=== PATIENT | female | born 1970 | race Caucasian/White ===

== ENCOUNTER → 2018-07-23 | Outpatient (CLI) | payer OTHER | LOC: FIMAGING 16:02 | PROVIDERS: ATTEND Nurse Practitioner | DX: M43.07 Spondylolysis, lumbosacral region (principal); M46.97 Unspecified inflammatory spondylopathy, lumbosacral region; M48.07 Spinal stenosis, lumbosacral region ==

== ENCOUNTER 2018-08-14 05:32 | Inpatient (IN) | payer OTHER ==
--- NOTE | 2018-08-14 06:01 | PDANEPAE ---
ANE History of Present Illness L5-S1 TLIF ANE Past Medical History - Cardiovascular History Hx Hypertension: No Hx Arrhythmias: No Hx Chest Pain: No Hx Coronary Artery / Peripheral Vascular Disease: No Hx CHF / Valvular Disease: No Hx Palpitations: No - Pulmonary History Hx COPD: No Hx Asthma/Reactive Airway Disease: No Hx Recent Upper Respiratory Infection: No Hx Oxygen in Use at Home: No Hx Sleep Apnea: No Sleep Apnea Screening Result - Last Documented: Negative - Neurologic History Hx Cerebrovascular Accident: No Hx Seizures: No Hx Dementia: No Neurologic History Comment: migraines - Endocrine History Hx Diabetes: No Hypothyroid: No Hyperthyroid: No Obesity: mild - Renal History Hx Renal Disorders: Yes Renal History Comment: weaker bladder after having children - Liver History Hx Hepatic Disorders: No - Neurological & Psychiatric Hx Hx Neurological and Psychiatric Disorders: No - Cancer History Hx Cancer: No - Congenital Disorder History Hx Congenital Disorders: No - GI History GERD: no Hx Gastrointestinal Disorders: Yes Gastrointestinal History Comment: constipation issues at times - Other Health History Other Health History: wears glasses for distance - Chronic Pain History Chronic Pain: Yes (sciatic pain and right leg) - Surgical History Prior Surgeries: n/a ANE Review of Systems Review of Systems: - Exercise capacity METS (RN): 4 METS ANE Patient History - Allergies Allergies/Adverse Reactions: No Known Allergies Allergy (Verified 08/06/18 15:41) - Home Medications Home Medications: Ibuprofen [Motrin (*)] 200 mg PO Q4-6PRN PRN 07/30/18 [Last Taken 1 Month Ago ~ 07/15/18] Naratriptan HCl [Amerge] 2.5 mg PO DAILY PRN 07/30/18 [Last Taken 08/10/18] - Anes Hx Hx Anesthesia Complications (with details): No prior anesthetics. - Smoking Hx Smoking Status: Never smoked Marijuana use: No - Alcohol Use Alcohol Use: Rarely - Family Anes Hx Family Anes Hx: none Family Hx Anesthesia Complications: none ANE Labs/Vital Signs - Vital Signs Blood Pressure: 121/62 Heart Rate: 78 O2 Sat (%): 100 Height: 165.1 cm Weight: 77.111 kg ANE Physical Exam - Airway Neck exam: FROM Mallampati Score: Class 2 Mouth exam: normal dental/mouth exam - Pulmonary Pulmonary: clear to auscultation - Cardiovascular Cardiovascular: regular rate and rhythym - ASA Status ASA Status: II ANE Anesthesia Plan Anesthesia Plan: general endotracheal anesthesia
[2018-08-14] MEDS ORDERED: ceFAZolin 2 GM/DEXTROSE 100 ML IV ONE (06:05)
[2018-08-14] MEDS ORDERED: GABAPENTIN 300 MG CAP PO ONE (06:05)
[2018-08-14] MEDS ORDERED: ACETAMINOPHEN 500 MG TAB PO ONE (06:05)
[2018-08-14] MEDS ORDERED: LR 1,000 ML IV ONE (06:06)
--- NOTE | 2018-08-14 06:40 | PDHPUP ---
History & Physical Update H&P update statement: This history and physical update is based on an assessment of the patient which was completed after admission or registration (within 24 hours), but prior to the surgery/procedure. H&P update: H&P reviewed & patient examined, no change in patient's condition since H&P completed
[2018-08-14] MEDS ORDERED: Naratriptan Hcl [Amerge] 2.5 MG PO PRN (06:47)
[2018-08-14] MEDS ORDERED: THROMBIN (BOVINE) 5,000 UNIT VIAL TP ONE (06:48)
[2018-08-14] MEDS ORDERED: CHLORHEXIDINE GLUC HIBICLENS 118 ML BTL TP ONE (06:48)
[2018-08-14] MEDS ORDERED: BUPIVACAINE/EPI 0.25% 30 ML SDV ONE (06:48)
[2018-08-14] MEDS ORDERED: BACITRACIN 50,000 UNITS/10 ML SYR IRR ONE (06:49)
[2018-08-14] MEDS ORDERED: SCOPOLAMINE HYDROBROMIDE 1 MG/3 DAYS PATCH TD ONE (06:53)
[2018-08-14] MEDS ORDERED: MIDAZOLAM 2 MG/2 ML VIAL IVP ONE (06:53)
[2018-08-14] MEDS ORDERED: fentaNYL 250 MCG/5 ML INJ ONE (06:59)
[2018-08-14] MEDS ORDERED: KETAMINE 200 MG/20 ML VIAL ONE (07:00)
[2018-08-14] MEDS ORDERED: PROPOFOL/EMULSION 500 MG/50 ML BOTTLE IV ONE ×2 (07:00→08:23)
[2018-08-14] MEDS ORDERED: ROCURONIUM 50 MG/5 ML VIAL ONE (07:00)
[2018-08-14] MEDS ORDERED: HYDROmorphONE/DILAUDID 2 MG/ML INJ ONE ×2 (08:23→12:26)
[2018-08-14] MEDS ORDERED: PROPOFOL 200 MG/20 ML VIAL ONE (10:35)
[2018-08-14] MEDS ORDERED: ONDANSETRON 4 MG/2 ML VIAL ONE ×2 (10:44)
[2018-08-14] MEDS ORDERED: ONDANSETRON 4 MG/2 ML VIAL IVP PRN ×2 (10:48→11:49)
[2018-08-14] MEDS ORDERED: NALOXONE HCL 0.4 MG/ML INJ IVP PRN (10:48)
[2018-08-14] MEDS ORDERED: oxyCODONE IR 5 MG TAB PO PRN (10:48)
[2018-08-14] MEDS ORDERED: NEOSTIGMINE METHYLSULFATE 5 MG/5 ML SYR ONE (10:56)
[2018-08-14] MEDS ORDERED: GLYCOPYRROLATE 0.2 MG/1 ML VIAL ONE (10:56)
[2018-08-14] MEDS ORDERED: fentaNYL 100 MCG/2 ML INJ ONE (11:43)
[2018-08-14] MEDS: fentaNYL 100 MCG/2 ML INJ IVP PRN ×2 (11:45→11:58)
[2018-08-14] MEDS ORDERED: diphenhydrAMINE 25 MG CAP PO PRN (11:49)
[2018-08-14] MEDS ORDERED: ZOLPIDEM TARTRATE 5 MG TAB PO PRN (11:49)
[2018-08-14] MEDS ORDERED: LACTULOSE 20 GM/30 ML UDCUP PO PRN (11:49)
[2018-08-14] MEDS ORDERED: MAGNESIUM HYDROXIDE 30 ML UDCUP PO PRN (11:49)
[2018-08-14] MEDS ORDERED: HYDROmorphONE/DILAUDID 1 MG/ML INJ IVP PRN (11:49)
[2018-08-14] MEDS ORDERED: ONDANSETRON DISINTEGRATING 4 MG TAB PO PRN (11:49)
[2018-08-14] MEDS ORDERED: POLYETHYLENE GLYCOL 3350 17 GM PKT PO PRN (11:49)
[2018-08-14] MEDS ORDERED: BISACODYL 10 MG SUPP PR PRN (11:49)
--- NOTE | 2018-08-14 11:57 | POSTOPPROG ---
Post Op Note Date of Operation: 08/14/18 Surgeon: Carlos Valentine Strategic Partnership Manager: JARROD Tafoya Anesthesiologist: MD Yoandy Anesthesia: GET(General Endotracheal), Local (Specify) Pre-op Diagnosis: Lumbar stenosis L5/S1 Post-op Diagnosis: Pars Defect/Lumbar stenosis L5/S1 Indication: LE pain, LBP Procedure: TLIF L5/S1 Findings: see op report Inf/Abcess present in the surg proc area at time of surgery?: No Depth: Deep Incisional (Fascial) EBL: 100-500 Total fluids administered: see anesthesia record Complications: none Drains: Chuck Flores
[2018-08-14] MEDS ORDERED: NS 1,000 ML IV SCH (12:00)
--- NOTE | 2018-08-14 12:00 | SOAPPROG ---
SOAP Progress Note Assessment/Plan: Post Op Visit: S: Awake and alert. NAD. Pt with expected lower back pain O: AFVSS/PERRLA/EOMI no droop CN 2-12 grossly intact +lt touch 5/5 BUE/BLE = CDI KELTON in place A/P: 48 yo female that is s/p TLIF L5/S1 -orders in place -call with any questions or concerns -PT/OT -pt understands and agrees -pt seen by Dr Valentine as well Objective: Vital Signs Temp Pulse Resp BP Pulse Ox 36.3 C 78 16 121/62 H 100 08/14/18 11:30 08/14/18 08:11 08/14/18 06:28 08/14/18 08:11 08/14/18 08:11 08/13/18 08/14/18 08/15/18 05:59 05:59 05:59 Intake Total 1210 Output Total 270 Balance 940 ICD10 Worksheet Patient Problems: Problems Problem Status Onset Arthrodesis status Acute Lumbar radicular pain Acute Lumbar stenosis Acute - ICD10 Problem Qualifiers (1) Lumbar stenosis (2) Lumbar radicular pain (3) Arthrodesis status
[2018-08-14] MEDS: HYDROmorphONE/DILAUDID 2 MG/ML INJ IVP PRN ×3 (12:29→13:28)
--- NOTE | 2018-08-14 12:53 | GOP ---
DATE OF OPERATION: 08/14/2018 SURGEON: Rachel Valentine MD NEUROSURGEON: Rachel Valentine MD [facility] DIRECTOR: COLLEEN Smiley. PREOPERATIVE DIAGNOSIS: Lumbar spondylolysis L5-S1, severe right L5 radiculopathy, lumbar spondyloli sthesis L5-S1. POSTOPERATIVE DIAGNOSIS: Lumbar spondylolysis L5-S1, severe right L5 radiculopathy, lumbar spondylol isthesis L5-S1. PROCEDURE PERFORMED: Posterolateral and intervertebral arthrodesis L5-S1 with a Fitzgerald decompression L 5-S1, same incision bone graft harvest, posterior nonsegmental instrumentation across a single inters pace L5-S1, placement of biomechanical intervertebral device L5-S1, spinal stereotaxy, microscope. FINDINGS: ESTIMATED BLOOD LOSS: 150 cc. INDICATIONS: The patient is a middle-age woman who had terrible right L5 radiculopathy and an MRI de monstrated complete obliteration of the right foramen at L5-S1 due to a spondylolisthesis with a lysi s at L5-S1. She had no significant spinal stenosis, but the problem was in the right foramen at L5-S 1 where there was prolapse of the 5-1 disk and the 5 nerve root was crushed against the pedicle of L5 underneath the isthmus coming off the pedicle. I suggested a single-level fusion at that level. Th ere was already some damage in the L4-5 disk, itself, but no significant compressive lesion there in my view. The risk of pseudoarthrosis, continued symptoms, screw and hardware malposition, malfunctio n was discussed. She understood these risks and she wanted to proceed. DESCRIPTION OF PROCEDURE: The patient was taken to the operating room, placed in the supine position . General anesthesia was begun. She was flipped prone onto the Chuck table. Care was taken to pa d all points of contact. Her back was sterilely prepped and draped in usual fashion. A localizing x -ray was taken. I made a midline incision above the L5-S1 interspace. The subcutaneous tissue was dissected using Ross vie cautery down to the fascia and a subperiosteal dissection was made down the L4 lamina, the L5 dominguez migue, and the S1 lamina. We shot localizing x-rays. We then denuded the-L5-S1 facet joint and follow ed the L5 path of the pars interarticularis down to the L5 pedicle and the transverse process of L5. There was a pars defect on each side. We attached the Stealth reference frame to the L4 spinous pro cess and performed an O-arm spin and using frame the Stealth stereotaxy, placed pedicle screws bilate rally at L5 and S1. The L5 pedicles were, indeed, dysplastic and smaller than normal, but we were ab le to get good screws into them. They all stimulated at acceptable levels. We took 35 mm rods down, placed in between the tulips at L5-S1. We then distracted between L5 and S1 and got good reduction o f her spondylolisthesis and locked her in place in this location. We removed all the soft tissue of the bone from the L5 lamina and then harvested the L5 lamina for autologous grafting purposes. We drilled bilateral laminectomies. The lamina was floating because there were bilateral pars defect s, and under the microscope, we completely removed the lamina. We began on the right side where we d ecompressed the right neural foramen, following the L5 root out from adjacent to the L5 pedicle all t he way out into the neural foramina and got a great decompression, thereby removing the abnormal pars interarticularis and the shelf of bone on top of the L5 root. We also decorticated the superior art iculating process of the sacrum to allow arthrodesis. We then turned our attention to the left-hand side where we did likewise. We decompressed the exitin g L5 root and removed the shelf of bone that was sitting on top of the root, and then decorticated th e remaining bone at L5 in the pedicle of L5, as well as the SAP of the sacrum to allow for bony arthr odesis there. We then worked our way medial to the L5 nerve root on the right and just lateral to th e S1 root and removed the L5-S1 disk and the cartilaginous endplates. We roughened the subchondral b one to create arthrodesis at those levels and then took bone autograft and BMP, placed it in the disk space there and then inserted a 7 x 23 mm device, which had been sized to fit. It was inserted with out difficulty and expanded, and we had excellent position of the device. This was all done under fl uoroscopic guidance. We had a large amount of bone autograft in the disk space. We then placed bone autograft and BMP posterolaterally bilaterally, followed by a subfascial drain. All the cap screws had been locked according to company specification. We then closed the incision in multiple layers using Vicryl sutures. A running PDS was placed in the skin, itself. The patient was reversed from anesthesia, extubated, and transferred to the recovery room in stable condition. There were no complications. COMPLICATIONS: None. INSTRUMENTATION USED: [employer] Solera 5.5 mm system with a 7 x 23 mm Elevate cage, and an extra sma ll BMP. /[id number]/MODL
--- NOTE | 2018-08-14 13:14 | POSTANESTH ---
Post Anesthetic Evaluation Cardiovascular Status: Normal, Stable Respiratory Status: Normal, Stable Level of Consciousness/Mental Status: Can Participate in Eval Pain Control: Adequate, Prn Tx Ordered Nausea/Vomiting Control: Adequate, Prn Tx Ordered Complications Possibly Related to Anesthesia: None Noted
[2018-08-14] MEDS ORDERED: ACETAMINOPHEN 500 MG TAB ONE (13:38)
[2018-08-14] MEDS: ACETAMINOPHEN 500 MG TAB PO SCH ×2 (13:39→21:06)
[2018-08-14] MEDS: ceFAZolin 2 GM/DEXTROSE 100 ML IV SCH ×2 (15:07→23:34)
[2018-08-14] MEDS: GABAPENTIN 300 MG CAP PO SCH ×2 (15:07→21:06)
[2018-08-14] MEDS: oxyCODONE IR 5 MG TAB PO PRN (16:10)
[2018-08-14] MEDS ORDERED: PATCH REMOVAL 1 EA PATCH TD ONE (21:00)
[2018-08-14] MEDS: SENNOSIDES/DOCUSATE SODIUM TAB PO SCH (21:06)
[2018-08-14] MEDS: FAMOTIDINE 20 MG TAB PO SCH (21:07)
[2018-08-15] MEDS: oxyCODONE IR 5 MG TAB PO PRN ×5 (00:08→21:00)
[2018-08-15] MEDS: METHOCARBAMOL 750 MG TAB PO PRN ×3 (00:08→19:10)
[2018-08-15] MEDS: GABAPENTIN 300 MG CAP PO SCH ×3 (05:13→21:01)
[2018-08-15 05:19] LABS: PLATELET COUNT 176 10^3/uL (150-400)
[2018-08-15] MEDS: ACETAMINOPHEN 500 MG TAB PO SCH ×3 (06:35→21:03)
--- NOTE | 2018-08-15 09:03 | NEUSURGPN ---
Date of Surgery: 08/14/18 Post Op Day: 1 Assessment/Plan: Assessment: 48 yo female that is s/p TLIF L5/S1 POD #1 Plan: -s/p TLIF L5/S1: pt with expected lower back pain. Legs feel better -will work with PT/OT today -KELTON in place will follow output -post op xrays pending -orders in place -call with any questions or concerns -continue with brace -pt understands and agrees -pt seen by Dr Valentine as well -plan for dc if does well today Subjective: Awake and alert. NAD. Eating/drinking and voiding. No f/c/n/v/d. No andres/neck/ chest/abd or gu complaints. Objective: AFVSS/PERRLA/EOMI no droop CN 2-12 grossly intact +lt touch 5/5 BUE/BLE = CDI KELTON in place Neuro Check Frequency: per routine Urinary Catheter in Place: No Catheter Insertion Date: 08/14/18 - Physician Discussed Patient with Dr.: Serge Patient Seen by : Serge Neurosurgery Physical Exam - Vitals, I&O, Labs I and O 08/14/18 08/15/18 08/16/18 05:59 05:59 05:59 Intake Total 5367 Output Total 3410 Balance 1956 Weight 77.111 kg Intake: Oral (ml) 2260 IV Intake (ml) 1700 IV Infused (ml) 1407 Ns 1,000 ml @ 75 mls/hr 1307 IV CONT BALTAZAR Rx#: [id number] ceFAZolin 2 GM/DEXTROSE 100 100 ml @ 200 mls/hr IV Q8H BALTAZAR Rx#:[id number] Output: Urine (ml) 2520 Catheter 2520 Estimated Blood Loss (ml) 150 Emesis (ml) 400 KELTON Drain Output (ml) 340 #1 Posterior Back Chuck 340 Flores Other: Number of Voids Catheter 1 Number of Emesis 1 Occurrences Vital Signs Temp Pulse Resp BP Pulse Ox 37.3 C 109 H 16 112/52 L 95 08/15/18 04:00 08/15/18 04:00 08/15/18 04:00 08/15/18 04:00 08/15/18 04:00 Laboratory Results 08/15/18 04:56 08/15/18 04:56 ICD10 Worksheet Patient Problems: Problems Problem Status Onset Arthrodesis status Acute Lumbar radicular pain Acute Lumbar stenosis Acute - ICD10 Problem Qualifiers (1) Lumbar stenosis (2) Lumbar radicular pain (3) Arthrodesis status
[2018-08-15] MEDS: SENNOSIDES/DOCUSATE SODIUM TAB PO SCH ×2 (09:31→21:01)
[2018-08-15] MEDS: FAMOTIDINE 20 MG TAB PO SCH ×2 (09:32→21:02)
--- NOTE | 2018-08-15 15:19 | ASMTCMCOM ---
CM Note CM Note Notes: Pt presents with L5-S1 TLIF. PT/OT recommending outpatient. No other CM needs identifed. CM available if needs arise. Plan: Independent Date Signed: 08/15/2018 03:18 PM Electronically Signed By:JODI Pate
[2018-08-16] MEDS: oxyCODONE IR 5 MG TAB PO PRN ×4 (01:41→14:17)
[2018-08-16] MEDS: METHOCARBAMOL 750 MG TAB PO PRN ×2 (01:41→10:10)
[2018-08-16] MEDS: ACETAMINOPHEN 500 MG TAB PO SCH ×2 (05:32→14:16)
[2018-08-16] MEDS: GABAPENTIN 300 MG CAP PO SCH ×2 (05:32→14:17)
--- NOTE | 2018-08-16 06:05 | NEUSURGPN ---
Assessment/Plan: Assessment: 48 yo female that is s/p TLIF L5/S1 POD #2 Plan: -PT/OT -post op xrays with intact hardware -optimize pain management -call with any questions or concerns -plan for dc if does well today Subjective: Denies any new leg pain, weakness. incisional back pain tolerable Objective: NAD A&Ox3 +lt touch 5/5 BUE/BLE = CDI Catheter Insertion Date: 08/14/18 - Physician Discussed Patient with DrAnthony: Serge Neurosurgery Physical Exam - Vitals, I&O, Labs I and O 08/15/18 08/16/18 08/17/18 05:59 05:59 05:59 Intake Total 5367 950 Output Total 3410 300 Balance 1957 650 Weight 77.111 kg Intake: Oral (ml) 2260 950 IV Intake (ml) 1700 IV Infused (ml) 1407 Ns 1,000 ml @ 75 mls/hr 1307 IV CONT BALTAZAR Rx#: [id number] ceFAZolin 2 GM/DEXTROSE 100 100 ml @ 200 mls/hr IV Q8H BALTAZAR Rx#:[id number] Output: Urine (ml) 2520 300 Catheter 2520 Toilet 300 Estimated Blood Loss (ml) 150 Emesis (ml) 400 KELTON Drain Output (ml) 340 #1 Posterior Back Chuck 340 Flores Other: Number of Voids Catheter 1 Toilet 1 Number of Emesis 1 Occurrences Vital Signs Temp Pulse Resp BP Pulse Ox 37.8 C 98 12 110/55 L 93 08/16/18 04:11 08/16/18 04:11 08/16/18 04:11 08/16/18 04:11 08/16/18 04:11 Laboratory Results 08/15/18 04:56 08/15/18 04:56 ICD10 Worksheet Patient Problems: Problems Problem Status Onset Arthrodesis status Acute Lumbar radicular pain Acute Lumbar stenosis Acute
[2018-08-16] MEDS: FAMOTIDINE 20 MG TAB PO SCH (09:05)
--- NOTE | 2018-08-16 09:07 | ASDISCHSUM ---
Discharge Information Plan Status:Home with No Needs Medically Cleared to Leave: Discharge Date: CM D/C Disposition:Home, Routine, Self-Care ADT D/C Disposition:Home, Routine, Self-Care Projected Discharge Date: Transportation at D/C: Discharge Delay Reason: Follow-Up Date: Discharge Slot: Final Diagnosis: Placement Information Patient Contact Information Contact Name:BRAYDON Relationship: Address:[address] [place] [address] Home Phone: City:[place] Alternate Phone: State/Zip Code:[place] [address] Email: Financial Information Financial Class:HMO and PPO Plans Primary Plan Desc:SAN[employer]INE PPO POS HMO SIG ADM Primary Plan Number:[id number] Secondary Plan Desc: Secondary Plan Number: Assessment Information LACE LACE Length of stay for Answers: 2 days current admission Acuity / Level of Answers: Yes Care: Did the patient have an inpatient admission? Comorbidities - select Answers: Opioid dependence all that apply / Chronic pain # of Emergency department Answers: 0 visits in the last 6 months Score: 9 Date Signed: 08/16/2018 09:06 AM Electronically Signed By:Candida Maxwell [facility] CM Progress Note CM Note CM Note Notes: Pt presents with L5-S1 TLIF. PT/OT recommending outpatient. No other CM needs identifed. CM available if needs arise. Plan: Independent Date Signed: 08/15/2018 03:18 PM Electronically Signed By:JODI Pate Intervention Information
[2018-08-16 09:11] VITALS: BP 111/59
[2018-08-16] MEDS: SENNOSIDES/DOCUSATE SODIUM TAB PO SCH (10:10)
[2018-08-17] MEDS ORDERED: ENOXAPARIN 40 MG/0.4 ML SYR SC SCH (09:00)
== END 2018-08-16 14:29 | disposition home or self-care (01) | DRG 455 ==
LOC: F3N 05:32
PROVIDERS: ADMIT Neurological Surgery; ATTEND Neurological Surgery
DX: M43.07 Spondylolysis, lumbosacral region (principal); M43.17 Spondylolisthesis, lumbosacral region; M54.16 Radiculopathy, lumbar region
CPT/HCPCS: 97116-GP; 97161-GP; 97165-GO; 97535-GO; C1713; G8978-GP-CI; G8979-GP-CI; J0690; J1170; J2250; J2405; J2704; J2710; J3010